=== PATIENT | female | born 1985 | race Caucasian/White ===

== ENCOUNTER 2021-04-16 20:08 | Emergency (ER) | payer OTHER ==
[~2021-04-16] VITALS: Ht 162.6 cm; Wt 63.5 kg
[2021-04-16] MEDS ORDERED: HYDROXYZINE HCL25 M2 PO (21:16)
[2021-04-16 21:41] VITALS: BP 149/91
--- NOTE | 2021-04-17 08:41 | EKG ---
[place] [address] ELECTROCARDIOGRAM REPORT Name: FREDERIC TAYLOR Room: [facility]#: [id number] Admission: 04/16/21 Attend Phys: Discharge: 04/16/21 Date of : 81 Date of Service: 04/16/212021 Report #: [id number] THIS REPORT FOR: //name// [facility] ED Test Date: 2021-04-16 Test Time: 20:22:58 Pat Name: FREDERIC TAYLOR Department: Room: Gender: Winder Hand: : 1985 Requested By: Kalyani Kendrick Order Number: [id number] MD: Gerry Saez Measurements Intervals [place] Rate: 106 P: 44 [place]: 148 QRS: 97 QRSD: 87 T: 8 QT: 321 QTc: 427 Interpretive Statements Sinus tachycardia Probable left atrial enlargement Borderline right axis deviation Low voltage, extremity leads Nonspecific T abnormalities, lateral leads Baseline wander in lead(s) V6 No previous ECG available for comparison Electronically Signed On 04-17-2021 8:41:34 CDT by Gerry Saez [email or web address] <ELECTRONICALLY SIGNED> By: Gerry Saez MD, FACC 04/17/21840 21 21 Gerry Saez MD, [facility] /EPI
== END 2021-04-16 21:41 | disposition home or self-care (01) ==
LOC: M.ERS 20:08
DX: F41.9 Anxiety disorder, unspecified (principal)